=== PATIENT | male | born 1970 | race African-American/Black ===

== ENCOUNTER 2019-10-26 16:47 | Emergency (ER) | payer MEDICAID, OTHER ==
[~2019-10-26] VITALS: Ht 175.3 cm; Wt 61.2 kg
[2019-10-26 17:27] VITALS: BP 121/81
[2019-10-26] MEDS ORDERED: KETOROLAC TROMETH 60MG/2ML VIAL IM ONE (19:30)
== END 2019-10-26 19:47 | disposition home or self-care (01) ==
LOC: ER 16:49
DX: K04.7 Periapical abscess without sinus (principal)
CPT/HCPCS: 96372; 99283; J1885